=== PATIENT | male | born 1950 | race Caucasian/White ===

== ENCOUNTER 2017-02-06 02:56 | Emergency (ER) | payer MEDICARE, OTHER ==
[~2017-02-06 02:56] MED LIST: ASPIR-LOW81 MG PO; CARBIDOPA-LEVO1 EAC6 PO; COGENTIN DPS1 MG PO; COZAAR100 MG PO; DAILY MULTIPLE1 EAC1 PO; DECADRON-DPS1 MG PO; FLEXERIL DPS5 MG PO; FLOMAX DPS0.4 MG PO; HYDROCODONE 5MG/5 MG PO; IMDUR DPS60 MG PO; IMODIUM DPS2 MG PO; LANTUS100 UNITS/ SQ; LASIX DPS20 MG PO; LASIX DPS40 MG PO; LEVEMIR100 UNIT/1 SQ; LEXAPRO DPS10 MG PO; LIPITOR DPS40 MG PO; LIPITOR80 MG PO; MAALOX DPS30 ML PO; MICRO-K DPS10 MEQ PO; MOBIC DPS7.5 MG PO; MULTIVITAMINS1 EAC1 PO; MYSOLINE50 MG PO; NEURONTIN800 MG PO; NITROSTAT0.4 MG SL; NORVASC DPS10 MG PO; NOVOLOG100 UNIT/2 SQ; OMEGA 3 1,0001 EACH PO; OMEGA 3 PO; PLAVIX75 MG PO; PRILOSEC DPS20 MG PO; PROAIR RESPICL90 MCG IH; RANEXA500 MG PO; SURFAK DPS240 MG PO; TOPIRAMATE100 MG PO; TOPIRAMATE200 MG PO; TOPROL XL DPS100 MG PO; TOPROL XL100 MG PO; TYLENOL DPS325 MG PO; VANTIN DPS200 MG PO; ZETIA10 MG PO
--- NOTE | 2017-02-06 19:22 | ER ---
ADMIT: 02/06/2017 RM/LOC: ER [facility] MR#: [id number] [address] [id number] JOCELYNE SALDIVAR [address] [place] [id number] Emergency Room Report SEX: M AGE: 66 : 1950 DATE: 02/06/2017 HISTORY OF PRESENT ILLNESS: The patient is a 66-year-old male with past medical history of hypertension, diabetes, coronary artery disease, status post CABG and stent, pseudoseizure, conversion disorder and tremor, who came to the ER with chief complaint of aphasia and dysarthria since tonight. Per daughter, the patient was at his baseline at 1:00 a.m. and when he was noticed later on after 2:00 a.m., they noticed the patient was not able to talk but he follows commands. Family denies any trauma. Per family, patient had one similar symptom in the past in 2013 and he was suspicious of TIA, but after reviewing the chart, all the CT scans and MRI were negative for TIA. Per EMS and per family, the patient had two episodes of seizure-like tremor-like activity, once in the afternoon and once at 2:00 a.m. Both of them lasted 5 minutes and one of them was bilateral upper extremities, the other one was one side right side upper extremity, and both of them lasted about 5 minutes, and after that, the patient was at the baseline mental status and was not postictal. Per family, the patient had similar episodes of dysesthesia/pseudoseizure activities in the past. PHYSICAL EXAMINATION: VITAL SIGNS: In the ER, we started code stroke, CT of the head was negative, blood sugar was in the mid 70s, and blood pressure systolic was in 160s. The patient was afebrile. GENERAL: The patient was in the bed in no obvious distress. Eyes were open, following the commands and answering the questions by just moving the fingers or hands or just other ways, but the patient was not verbal. The patient would follow the commands. HEAD AND NECK: Pupils are 3 mm, reactive to light with normal extraocular movements. Visual saunders are normal. NEUROLOGIC: The patient is alert, oriented to person, place, and time. All these questions were checked by double checking with his hand or finger movement. There is no drooping of the face, and cranial nerves are grossly normal. Motor, upper extremity, the patient can lift upper extremity without drift. 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 CHEST: Clear bilaterally. HEART: Normal heart sounds. ABDOMEN: Soft. MUSCULOSKELETAL: Babinski was negative bilaterally, reflexes are normal bilaterally. The rest of the physical examination was grossly normal. NIH score was 8 mostly because of dysarthria and aphasia. EMERGENCY DEPARTMENT COURSE: At this stage, after reviewing all the charts from 2005 and after reviewing the report of all CT's and MRIs since 2005, I did not see any indication of the stroke or hemorrhagic bleeding in the brain. ADMIT: 02/06/2017 RM/LOC: [facility] MR#: [id number] [address] [place] [id number] [place] [address] Emergency Room Report SEX: M AGE: 66 : 1950 The patient also had some EEG which was also negative for any acute changes. In the previous charts, the pseudoseizure and conversion disorder were one of the top differentials. At this stage, the patient is also DNR, per chart. Concerning the patient's condition and considering the fact that we do not have any neurologist in house, I contacted Dr. Gan, and per Dr. Gan, the patient had very similar episodes in the past, and after talking, we both deemed that this is not the best idea to follow with the tPA. Still, we needed the assessment by the neurologist to rule out any transient ischemic attack and stroke. Sofiya Boo was contacted and patient was admitted for further followups and treatment. ASSESSMENT: Rule-out stroke. Naresh Bermudez MD/ navin JOB #: [id number] CC: Naresh Bermudez MD, Attending Physician Parker Gan MD, Family Physician
== END 2017-02-06 05:12 | disposition short-term general hospital (02) ==
LOC: ER 02:56
DX: R47.1 Dysarthria and anarthria (principal); R56.9 Unspecified convulsions; R47.01 Aphasia; Z79.01 Long term (current) use of anticoagulants; Z79.82 Long term (current) use of aspirin; Z79.899 Other long term (current) drug therapy

== ENCOUNTER 2017-06-04 11:42 | Day surgery (SDC) | payer MEDICARE, OTHER ==
[~2017-06-04] VITALS: Ht 172.7 cm; Wt 88.7 kg
== END 2017-06-04 14:56 | disposition home or self-care (01) ==
LOC: RAD.S 11:42 → SSS 13:00 → EDSTATUS 13:00 → RAD.S 13:00
DX: M48.06 Spinal stenosis, lumbar region (principal); M51.26 Other intervertebral disc displacement, lumbar region; Z79.899 Other long term (current) drug therapy; Z91.011 Allergy to milk products